=== PATIENT | female | born 1980 | race Caucasian/White ===

== ENCOUNTER 2018-12-26 05:28 | Emergency (ER) | payer OTHER ==
[~2018-12-26] VITALS: Ht 154.9 cm; Wt 108.4 kg
[~2018-12-26 05:28] MED LIST: CLONAZEPAM1 MG; FLO4 PO; LAC PO; LEVAQUIN750 MG PO; TORADOL10 MG PO; ZOF4 PO
[2018-12-26 05:36] VITALS: Ht 154.9 cm; Wt 108.4 kg
[2018-12-26 07:55] LABS: CARBON DIOXIDE 25.1 mmol/L (21-32); CHLORIDE SERUM 106 mmol/L (98-107); CREATININE SERUM 0.9 mg/dL (0.6-1.0); GFR1 > 60 mL/min; GLUCOSE SERUM 140 mg/dL (74-106); POTASSIUM SERUM 3.7 mmol/L (3.5-5.1); SODIUM SERUM 141 mmol/L (136-145)
[2018-12-26 07:59] LABS: ALKALINE PHOSPHATASE 74 U/L (46-116); ALT/SGPT 79 U/L (14-59); AST/SGOT 51 U/L (15-37); BILIRUBIN TOTAL 0.35 mg/dL (0.20-1.00); LIPASE 104 IU/L (73-393); TOTAL PROTEIN, SERUM 7.3 g/dL (6.4-8.2)
[2018-12-26 08:00] LABS: BASOPHIL % 0.3 % (0-2); PLATELET COUNT 308 x10^3mcL (130-400); RED CELL DISTRIBUTION WIDTH 14.2 % (11.5-14.5)
[2018-12-26 08:06] LABS: ALBUMIN 3.2 g/dL (3.4-5.0)
[2018-12-26 09:51] VITALS: BP 121/60
== END 2018-12-26 09:51 | disposition home or self-care (01) ==
LOC: ED 05:28
PROVIDERS: Emergency Medicine
DX: N20.0 Calculus of kidney (principal); F41.9 Anxiety disorder, unspecified; Z88.0 Allergy status to penicillin
CPT/HCPCS: J1885; J7030

== ENCOUNTER 2019-03-28 00:44 | Emergency (ER) | payer OTHER ==
[~2019-03-28] VITALS: Ht 154.9 cm; Wt 106.1 kg
[2019-03-28 00:50] VITALS: Ht 154.9 cm; Wt 106.1 kg
[2019-03-28 02:56] VITALS: BP 117/60
== END 2019-03-28 02:45 | disposition home or self-care (01) ==
LOC: ED 00:44
DX: J20.9 Acute bronchitis, unspecified (principal); Z90.49 Acquired absence of other specified parts of digestive tract; Z88.0 Allergy status to penicillin; Z87.442 Personal history of urinary calculi
CPT/HCPCS: J7620; Q0092

== ENCOUNTER 2019-04-11 23:15 | Inpatient (IN) | payer OTHER ==
[~2019-04-11] VITALS: Ht 154.9 cm; Wt 104.3 kg
[2019-04-11 23:43] LABS: UA SPECIFIC GRAVITY >=1.030 (1.005-1.035); microscopic required? YES; urine erythrocyte 2+ (NEGATIVE)
[2019-04-12 00:19] LABS: BASOPHIL % 0.2 % (0-2); PLATELET COUNT 309 x10^3mcL (130-400)
[2019-04-12 00:21] LABS: CALCIUM 8.6 mg/dL (8.5-10.1); CARBON DIOXIDE 27.5 mmol/L (21-32); CHLORIDE SERUM 105 mmol/L (98-107); GFR1 > 60 mL/min; GLUCOSE SERUM 128 mg/dL (74-106); RED CELL DISTRIBUTION WIDTH 14.6 % (11.5-14.5); SODIUM SERUM 141 mmol/L (136-145)
[2019-04-12 00:28] LABS: ALBUMIN 3.3 g/dL (3.4-5.0); ALKALINE PHOSPHATASE 75 U/L (46-116); ALT/SGPT 63 U/L (14-59); AST/SGOT 33 U/L (15-37); BILIRUBIN TOTAL 0.4 mg/dL (0.20-1.00); CHOLESTEROL 232 mg/dL (<200); CHOLESTEROL/HDL RATIO 5.2; HDL CHOLESTEROL 45 mg/dL (40-60); TOTAL PROTEIN, SERUM 7.3 g/dL (6.4-8.2); TRIGLYCERIDES 167 mg/dL (<150)
[2019-04-12 03:17] VITALS: BP 134/78
[2019-04-12 05:51] VITALS: BP 160/72
[2019-04-12 06:50] LABS: CARBON DIOXIDE 26.3 mmol/L (21-32); CHLORIDE SERUM 107 mmol/L (98-107); GFR1 > 60 mL/min; GLUCOSE SERUM 116 mg/dL (74-106); MAGNESIUM 1.8 mg/dL (1.8-2.4); SODIUM SERUM 142 mmol/L (136-145)
[2019-04-12 06:53] LABS: BASOPHIL % 0.3 % (0-2); PLATELET COUNT 251 x10^3mcL (130-400); RED CELL DISTRIBUTION WIDTH 14.6 % (11.5-14.5)
[2019-04-12 08:49] VITALS: BP 122/78
[2019-04-12 12:28] VITALS: BP 118/71
== END 2019-04-12 16:00 | disposition left against medical advice (07) | DRG 465 ==
LOC: ED 23:15 → MU 04-12 01:29
PROVIDERS: Specialist; ADMIT Internal Medicine
DX: N20.0 Calculus of kidney (principal); E44.1 Mild protein-calorie malnutrition; F41.9 Anxiety disorder, unspecified; I10 Essential (primary) hypertension; E78.5 Hyperlipidemia, unspecified; Z87.442 Personal history of urinary calculi; Z88.0 Allergy status to penicillin; Z90.49 Acquired absence of other specified parts of digestive tract; Z83.3 Family history of diabetes mellitus; Z82.49 Family history of ischemic heart disease and other diseases of the circulatory system; Z53.29 Procedure and treatment not carried out because of patient's decision for other reasons
CPT/HCPCS: G0378; J1170; J1885; J1956; J2270; J2405; J3010; J7030; Q0092

== ENCOUNTER 2020-02-27 06:04 | Day surgery (SDC) | payer OTHER ==
[~2020-02-27] VITALS: Ht 154.9 cm; Wt 105.2 kg
[2020-02-27 06:32] VITALS: BP 138/85
[2020-02-27 11:59] VITALS: BP 135/76
== END 2020-02-27 11:50 | disposition home or self-care (01) ==
LOC: DS 06:04 → OR 07:30 → DS 11:50
PROVIDERS: ATTEND Obstetrics & Gynecology
DX: N92.1 Excessive and frequent menstruation with irregular cycle (principal); E03.9 Hypothyroidism, unspecified; E66.3 Overweight; Z68.41 Body mass index [BMI] 40.0-44.9, adult; Z79.899 Other long term (current) drug therapy; Z79.82 Long term (current) use of aspirin; Z20.828 Contact with and (suspected) exposure to other viral communicable diseases; Z98.890 Other specified postprocedural states
CPT/HCPCS: J0690; J2175; J2405; J3010; U0003